=== PATIENT | female | born 1935 | race Caucasian/White ===

== ENCOUNTER 2018-03-13 13:50 | Emergency (ER) | payer MEDICARE ==
--- NOTE | 2018-03-13 15:34 | EDM.PDOC ---
ED HPI GENERAL MEDICAL PROBLEM - General Chief Complaint: Genitourinary Problem Stated Complaint: UTI? W/CONFUSION Time Seen by Provider: 03/13/18 15:15 Source of Information: Reports: Patient History Limitations: Reports: No Limitations - History of Present Illness INITIAL COMMENTS - FREE TEXT/NARRATIVE: Patient present with complaints of tingling with urination for 24 hours. She denies fever, chills, nausea, vomiting, flank pain or other concerns. - Related Data Allergies Allergy/AdvReac Type Severity Reaction Status Date / Time Sulfa (Sulfonamide Allergy Cannot Verified 03/13/18 14:28 Antibiotics) Remember Home Meds: Home Meds NK [No Known Home Meds] 03/13/18 [History] Social & Family History - Tobacco Use Smoking Status *Q: Never Smoker ED ROS GENERAL - Review of Systems Review Of Systems: See Below Constitutional: Denies: Fever, Chills, Malaise, Weakness HEENT: Reports: No Symptoms Respiratory: Denies: Shortness of Breath, Wheezing, Cough, Sputum Cardiovascular: Reports: No Symptoms Endocrine: Reports: No Symptoms GI/Abdominal: Denies: Abdominal Pain, Black Stool, Bloody Stool, Constipation, Diarrhea, Difficulty Swallowing, Hematemesis, Hematochezia, Nausea, Vomiting : Reports: Dysuria, Frequency, Urgency. Denies: Flank Pain, Hematuria, Incontinence, Urinary Retention Musculoskeletal: Reports: No Symptoms Skin: Reports: No Symptoms Neurological: Denies: Confusion, Dizziness, Headache, Numbness, Syncope, Tingling, Trouble Speaking, Difficulty Walking, Weakness, Gait Disturbance Psychiatric: Reports: No Symptoms Hematologic/Lymphatic: Reports: No Symptoms Immunologic: Reports: No Symptoms ED EXAM, GI/ABD - Physical Exam Exam: See Below Text/Narrative:: Sue presents to the emergency room today with complaints of dysuria, frequency and urgency of urination. She denies fever, chills, nausea or any other complaints. She states she has been taking care of her for the past week or so who recently had surgery for a bowel obstruction and has not been drinking as much water. Exam Limited By: No Limitations General Appearance: Alert, WD/WN, No Apparent Distress Eyes: Bilateral: Normal Appearance (Evidence of previous surgical repair, Pupils eual and reactive), EOMI Ears: Normal External Exam, Normal Canal, Hearing Grossly Normal, Normal TMs Nose: Normal Inspection, Normal Mucosa, No Blood Throat/Mouth: Normal Inspection, Normal Lips, Normal Oropharynx, Normal Voice, No Airway Compromise Head: Atraumatic, Normocephalic Neck: Normal Inspection, Supple, Non-Tender, Full Range of Motion. No: Lymphadenopathy (R), Lymphadenopathy (L) Respiratory/Chest: No Respiratory Distress, Lungs Clear, Normal Breath Sounds, No Accessory Muscle Use, Chest Non-Tender Cardiovascular: Normal Peripheral Pulses, Regular Rate, Rhythm, No Edema, No Murmur GI/Abdominal Exam: Normal Bowel Sounds, Soft, Non-Tender, No Organomegaly, No Distention, No Mass. No: Guarding, Rigid, Rebound Back Exam: Normal Inspection, Full Range of Motion. No: CVA Tenderness (R), CVA Tenderness (L) Extremities: Normal Inspection, Normal Range of Motion, Non-Tender, No Pedal Edema, Normal Capillary Refill Neurological: Alert, Oriented, CN II-XII Intact, Normal Cognition, Normal Gait, No Motor/Sensory Deficits Psychiatric: Normal Affect, Normal Mood Skin Exam: Warm, Dry, Intact, Normal Color, No Rash Lymphatic: No Adenopathy Course - Vital Signs Last Recorded V/S: Last Vital Signs Temp 35.7 C 03/13/18 14:32 Pulse 71 03/13/18 14:32 Resp 16 03/13/18 14:32 BP 154/67 H 03/13/18 14:32 Pulse Ox 98 03/13/18 14:32 - Orders/Labs/Meds Orders: Active Orders 24 hr Category Date Time Status CULTURE URINE [RM] Stat Lab 03/13/18 16:00 Received UA W/MICROSCOPIC [URIN] Stat Lab 03/13/18 14:09 Ordered Labs: Laboratory Tests 03/13/18 Range/Units 14:09 Urine Color Yellow Urine Appearance Clear Urine pH 5.0 (4.5-8.0) Ur Specific [place] 1.030 (1.008-1.030) Urine Protein Negative (NEGATIVE) mg/dL Urine Glucose (UA) Normal (NEGATIVE) mg/dL Urine Ketones Negative (NEGATIVE) mg/dL Urine Occult Blood Moderate (NEGATIVE) Urine Nitrite Negative (NEGATIVE) Urine Bilirubin Small (NEGATIVE) Urine Urobilinogen 1 (NORMAL) mg/dL Ur Leukocyte Esterase Large (NEGATIVE) Urine RBC 5-10 H (0-5) Urine WBC 20-30 H (0-5) Ur Epithelial Cells Few Amorphous Sediment Not seen Urine Bacteria Many Urine Mucus Few Urine Other Urine reviewed with patient, we will culture. - Re-Assessments/Exams Free Text/Narrative Re-Assessment/Exam: 03/13/18 16:02 Patient complaints of irritation/pain with voiding. We will culture her urine. Treat for acute urinary tract infection. Departure - Departure Time of Disposition: 16:04 Disposition: Home, Self-Care 01 Condition: Good Clinical Impression: UTI, Urinary tract infectious disease, Dysuria - Discharge Information Instructions: Urinary Tract Infection, Adult, [id number], Dysuria Referrals: Arslan Zamora MD [Primary Care Provider] - Forms: ED Department Discharge Additional Instructions: You have been evaluated and treated for dysuria and an acute urinary tract infection. Take cephalexin 500mg by mouth twice per day for 7 days. Push oral fluids for hydration. Follow up with your primary provider in 7 to 10 days for a recheck. Return for worsening, issues or concerns. - My Orders Last 24 Hours: My Active Orders 03/13/18 14:09 UA W/MICROSCOPIC [URIN] Stat 03/13/18 16:00 CULTURE URINE [RM] Stat - Assessment/Plan Last 24 Hours: My Active Orders 03/13/18 14:09 UA W/MICROSCOPIC [URIN] Stat 03/13/18 16:00 CULTURE URINE [RM] Stat Assessment:: Dysuria Acute urinary tract infection Plan: Patient evaluated and treated for dysuria and an acute urinary tract infection. Take cephalexin 500mg by mouth twice per day for 7 days. Push oral fluids for hydration. Follow up with your primary provider in 7 to 10 days for a recheck. Return for worsening, issues or concerns.
== END 2018-03-13 16:24 | disposition home or self-care (01) ==
LOC: JP.ED 13:50
DX: N39.0 Urinary tract infection, site not specified (principal); Z88.2 Allergy status to sulfonamides
CPT/HCPCS: 81001; 87086; 99283; 99284